=== PATIENT | female | born 1980 | race Caucasian/White ===

== ENCOUNTER 2017-07-21 01:44 | Inpatient (IN) | payer OTHER ==
[2017-07-21] MEDS ORDERED: BISACODYL 10 MG SUPP.RECT RC PRN (02:23)
[2017-07-21] MEDS ORDERED: BENZOCAINE 28 GM HEMORRHOIDAL OINTMENT TP PRN (02:23)
[2017-07-21] MEDS ORDERED: oxyCODONE HCL 5 MG TABLET PO PRN (02:23)
[2017-07-21] MEDS ORDERED: METHYLERGONOVINE MALEATE 0.2 MG/1 ML AMP IM PRN (02:23)
[2017-07-21] MEDS ORDERED: WITCH HAZEL 50% (TUCKS) 40 PAD/JAR PAD TP PRN (02:23)
[2017-07-21] MEDS ORDERED: BENZOCAINE 20% 57 GM BOTTLE TP PRN (02:23)
[2017-07-21] MEDS ORDERED: D5W-LR W/ 20 UNITS OXYTOCIN 1,000 ML IV SCH (02:30)
[2017-07-21 02:54] LABS: BASOPHIL 0.6 % (0-2.0); EOSINOPHIL 0.5 % (0-4.5); MCH 24.4 pg (25.7-33.7); MCHC 33.2 g/dl (32.0-36.0); MEAN CELL VOLUME 73.6 fl (80-96); MEAN PLT VOLUME 8.4 fl (7.5-11.1); PLATELET COUNT 250 K/MM3 (134-434); RDW 15.3 % (11.6-15.6); WHITE BLOOD COUNT 10.3 K/mm3 (4.0-10.0)
[2017-07-21 03:06] LABS: INR 1.07 (0.82-1.09); PROTHROMBIN TIME (PATIENT) 11.8 SEC (9.98-11.88)
[2017-07-21 03:09] LABS: ACTIVATED PTT 23.4 SECONDS (26.9-34.4)
[2017-07-21 03:11] LABS: ARTERIAL BLD GAS O2 SATURATION 71.3 % (90-98.9); ARTERIAL BLOOD GAS BASE EXCESS -4.8 meq/l (-2-2); ARTERIAL BLOOD GAS HCO3 20.1 meq/L (22-26); ARTERIAL BLOOD GAS pH 7.34 (7.35-7.45)
[2017-07-21 03:12] LABS: ARTERIAL BLOOD GAS PO2 34.9 mmHg (80-100)
[2017-07-21 03:14] LABS: VENOUS BLOOD GAS HCO3 22.6 meq/L (19-25); VENOUS PH 7.29 (7.32-7.42)
[2017-07-21 03:15] LABS: ANION GAP 13 (8-16); CALCIUM 8.1 mg/dL (8.5-10.1); CO2 19 mmol/L (21-32); CREATININE 0.6 mg/dL (0.55-1.02); GLUCOSE,RANDOM 110 mg/dL (74-106)
[2017-07-21] MEDS ORDERED: TUBERCULIN PPD 5 TU/0.1ML SYRINGE (IN PATIENT USE ONLY) ID ONE (03:30)
[2017-07-21 03:38] LABS: HIV 1 & 2 AB NEGATIVE; HIV 1 AGp24 NEGATIVE
[2017-07-21 03:47] VITALS: BMI 39.6
[2017-07-21] MEDS: ACETAMINOPHEN 325 MG TABLET (FP) PO PRN (06:18)
[2017-07-21] MEDS: IBUPROFEN 600 MG TABLET (FP) PO PRN (06:19)
--- NOTE | 2017-07-21 08:37 | HP ---
Past Medical History - Primary Care Physician PCP:: Campbell Guerrero - Admission Chief Complaint: labor pain, ROM History of Present Illness: 37 yo f 103 36 weeks gestation c/o rom since 2 pm yesterday, with contraction, no fever, no bleeding, cx full 100 vx ,1+fhr cat 1 contracction q 2 min History Source: Medical Record Limitations to Obtaining History: Language Barrier - Past Medical History ...: 4 ...Para: 3 ...Term: 3 ...: 0 ...Spon : 0 ...Induced : 0 ...Multiple Gestation: 0 ...LMP: 12/18/16 ... Weeks Gestation by Dates: 30.5 ...EDC by Dates: 09/24/17 - Past Surgical History Hx Myomectomy: No Hx Transabdominal Cerclage: No - Smoking History Smoking history: Never smoked Have you smoked in the past 12 months: No - Alcohol/Substance Use Hx Alcohol Use: No Home Medications - Allergies Allergies/Adverse Reactions: Allergies Allergy/AdvReac Type Severity Reaction Status Date / Time No Known Drug Allergies Allergy Verified 07/21/17 03:17 - Home Medications Home Medications: Ambulatory Orders Vit #76/Iron,Carb/FA [Pnv 29-1 Tablet] 1 tab PO DAILY 07/21/17 Review of Systems - Review of Systems Constitutional: reports: No Symptoms Eyes: reports: No Symptoms HENT: reports: No Symptoms Neck: reports: No Symptoms Cardiovascular: reports: No Symptoms Respiratory: reports: No Symptoms Gastrointestinal: reports: Abdominal Pain Genitourinary: reports: No Symptoms Breasts: reports: No Symptoms Reported Musculoskeletal: reports: No Symptoms Integumentary: reports: No Symptoms Neurological: reports: No Symptoms Endocrine: reports: No Symptoms Hematology/Lymphatic: reports: No Symptoms Psychiatric: reports: No Symptoms Physical Exam - Maternity Vital Signs: Vital Signs Temperature 98.9 F 07/21/17 06:00 Pulse Rate 60 07/21/17 06:00 Respiratory Rate 20 07/21/17 06:00 Blood Pressure 126/74 07/21/17 06:00 O2 Sat by Pulse Oximetry (%) 100 07/21/17 03:15 Constitutional: Yes: Well Nourished, No Distress, Calm Eyes: Yes: WNL, Conjunctiva Clear, EOM Intact HENT: Yes: WNL, Atraumatic, Normocephalic Neck: Yes: WNL, Supple, Trachea Midline Cardiovascular: Yes: WNL, Regular Rate and Rhythm Breast(s): Yes: WNL - Abdominal Exam/OB Fundal Height: 36 Number of Fetuses: Single Presentation: Vertex Contractions: Yes Regularity: Regular Intensity: Strong Monitor Mode: External Heart Rate Location: [facility] Category: I Accelerations: Uniform Decelerations: None - Vaginal Exam/OB Vaginal Bleediing: Bloody Show Speculum Exam: No Dilatation (cm): full Effacement (%): 100 Amniotic Membrane Status: Ruptured Nitrazine Test: Positive Amniotic Fluid: Yes: Clear Station: +1 - Physical Exam Musculoskeletal: Yes: WNL Extremities: Yes: WNL Edema: Yes Edema: LLE: Trace, RLE: Trace Deep Tendon Reflex Grade: Normal +2 Psychiatric: Yes: WNL - Labs Lab Results: CBC, BMP 07/21/17 02:00 07/21/17 02:00 Problem List - Problems (1) with 36 completed weeks gestation Code(s): Z3A.36 - 36 WEEKS GESTATION OF (2) membrane rupture Code(s): LKZ7444 - (3) Labor established Code(s): EHT5347 - Assessment/Plan admit for vaginal delivery, FH monitoring, ,ampicillin iv
[2017-07-21] MEDS: FERROUS SO4 325 MG TABLET (FP) PO SCH ×2 (10:44→21:32)
[2017-07-21] MEDS: PRENATAL VITAMINS W/ FOLIC ACID TABLET (FP) PO SCH (10:44)
[2017-07-22 07:31] LABS: BASOPHIL 0.4 % (0-2.0); EOSINOPHIL 1.4 % (0-4.5); MCH 24.1 pg (25.7-33.7); MCHC 32.1 g/dl (32.0-36.0); MEAN CELL VOLUME 74.9 fl (80-96); MEAN PLT VOLUME 7.9 fl (7.5-11.1); PLATELET COUNT 212 K/MM3 (134-434); RDW 15.8 % (11.6-15.6); WHITE BLOOD COUNT 7.6 K/mm3 (4.0-10.0)
[2017-07-22] MEDS: PRENATAL VITAMINS W/ FOLIC ACID TABLET (FP) PO SCH (09:50)
[2017-07-22] MEDS: FERROUS SO4 325 MG TABLET (FP) PO SCH ×2 (09:50→21:29)
[2017-07-22] MEDS ORDERED: DIPHTH,PERTUSS(ACELL),TET 0.5 ML DISP.SYRIN IM ONE (10:00)
[2017-07-22] MEDS ORDERED: FLU VACC QS2017-18 36MOS UP/PF 60 MCG/0.5 ML SYRINGE IM ONE (10:00)
--- NOTE | 2017-07-22 11:14 | PN ---
Progress Note (short form) - Note Progress Note: ppd 1 doing well, no c/o. no dizziness, no excess vaginal bleeding CBC, BMP 07/22/17 06:50 07/21/17 02:00 uterus firm, non tender, no cva no calf tenderness lochia mild ppd 1 anemia, asymptomatic, advised iron, vit Problem List - Problems (1) with 36 completed weeks gestation Code(s): Z3A.36 - 36 WEEKS GESTATION OF (2) membrane rupture Code(s): USX5844 - (3) Labor established Code(s): EJX7755 -
[2017-07-22] MEDS ORDERED: SENNOSIDES/DOCUSATE COMBO (SENNA PLUS) TABLET (UD) PO PRN (22:00)
--- NOTE | 2017-07-23 06:32 | PN ---
Post Progress Note - Subjective Subjective: no complains except cramps Post Day: 2 Type of Delivery: Vital Signs: Vital Signs Temperature 98.3 F 07/22/17 22:00 Pulse Rate 66 07/22/17 22:00 Respiratory Rate 20 07/22/17 22:00 Blood Pressure 124/71 07/22/17 22:00 O2 Sat by Pulse Oximetry (%) 100 07/21/17 03:15 Breast Exam: Yes: Soft, Other (attempting BF , no milk yet ). No: Engorged Uterus: Yes: Fundus Firm, Fundus below umbilicus, Non-tender Lochia: Yes: Rubra Lochia, amount: Moderate Extremities: Yes: Calves non-tender Perineum: Yes: Intact Activity: Ambulating - Labs Labs: CBC WBC 7.6 K/mm3 (4.0-10.0) 07/22/17 06:50 RBC 3.58 M/mm3 (3.60-5.2) L 07/22/17 06:50 Hgb 8.6 GM/dL (10.7-15.3) L D 07/22/17 06:50 Hct 26.8 % (32.4-45.2) L 07/22/17 06:50 MCV 74.9 fl (80-96) L 07/22/17 06:50 MCH 24.1 pg (25.7-33.7) L 07/22/17 06:50 MCHC 32.1 g/dl (32.0-36.0) 07/22/17 06:50 RDW 15.8 % (11.6-15.6) H 07/22/17 06:50 Plt Count 212 K/MM3 (134-434) 07/22/17 06:50 MPV 7.9 fl (7.5-11.1) 07/22/17 06:50 Neutrophils % 51.0 % (42.8-82.8) D 07/22/17 06:50 Lymphocytes % 38.7 % (8-40) D 07/22/17 06:50 Monocytes % 8.5 % (3.8-10.2) 07/22/17 06:50 Eosinophils % 1.4 % (0-4.5) D 07/22/17 06:50 Basophils % 0.4 % (0-2.0) 07/22/17 06:50 Assessment/Plan anemia counselled discharge today follow in her clinic discharge today
[2017-07-23] MEDS: IBUPROFEN 600 MG TABLET (FP) PO PRN (07:43)
[2017-07-23] MEDS: ACETAMINOPHEN 325 MG TABLET (FP) PO PRN (07:43)
[2017-07-23 08:32] VITALS: BP 124/74; PULSE 65
[2017-07-23] MEDS: PRENATAL VITAMINS W/ FOLIC ACID TABLET (FP) PO SCH (10:27)
[2017-07-23] MEDS: FERROUS SO4 325 MG TABLET (FP) PO SCH (10:27)
[2017-07-23 12:13] VITALS: TEMP 99.3
--- NOTE | 2017-07-25 08:40 | DS ---
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: Vital Signs Temperature 99.3 F 07/23/17 12:13 Pulse Rate 65 07/23/17 08:19 Respiratory Rate 20 07/23/17 08:19 Blood Pressure 124/74 07/23/17 08:19 O2 Sat by Pulse Oximetry (%) 100 07/21/17 03:15 Constitutional: Yes: Well Nourished, No Distress, Calm Eyes: Yes: WNL, Conjunctiva Clear, EOM Intact HENT: Yes: WNL, Atraumatic, Normocephalic Neck: Yes: WNL, Supple, Trachea Midline Cardiovascular: Yes: WNL, Regular Rate and Rhythm Respiratory: Yes: WNL, Regular, CTA Bilaterally Gastrointestinal: Yes: WNL ...Rectal Exam: Yes: WNL Renal/: Yes: WNL ....Post : Yes: Uterus firm, Uterus non-tender, Slight lochia rubra Breast(s): Yes: WNL Musculoskeletal: Yes: WNL Extremities: Yes: WNL Edema: No Integumentary: Yes: WNL Neurological: Yes: WNL, Alert, Oriented ...Motor Strength: WNL Psychiatric: Yes: WNL, Alert, Oriented Labs: CBC, BMP 07/22/17 06:50 07/21/17 02:00 Delivery - Delivery Section: Primary (no complication) Type of Anesthesia: None Episiotomy/Laceration: None EBL (cc): 300 Delivery, Single - Stages of Labor Date 1st Stage Initiatied: 07/20/17 Time 1st Stage Initiated: 23:00 Date of Delivery: 07/21/17 Time of Delivery: 02:10 Time Placenta Delivered: 02:15 Placenta: Yes: Spontaneous - Condition of Infant Sight Effects Specialist/Manager Community Development Present: Yes Name: Quyen Martínez Infant Gender: Female Weight: 7 lb 5 oz Position: Left, OA Total Hours ROM (Hrs/Mins): 12 HOURS 10MINUTES - 1 Minute Total Score: 9 5 Minutes Total Score: 9 - Feeding Plan Initial Plan: Elected not to breastfeed exclusively throughout hospitalization Discharge Summary Reason For Visit: LABOR Procedures: Principal: Condition: Good - Instructions Diet, Activity, Other Instructions: Discharge Instructions * Out of Bed * * Regular Diet, High iron & high protein Diet * Continue vit po daily & Iron pills twice daily * Janay Care * Avoid sex for 6 weeks * RTC for pp visit in 6 weeks If you experience excessive bleeding or fever over 101 degrees, call doctor, the clinic or go to the Emergency Room. call [facility] for appointment. [phone] Disposition: HOME - Home Medications Comprehensive Discharge Medication List: Ambulatory Orders Vit #76/Iron,Carb/FA [Pnv 29-1 Tablet] 1 tab PO DAILY 07/21/17 Acetaminophen [Tylenol .Regular Strength -] 650 mg PO Q3H PRN #0 tablet Ferrous Sulfate [Feosol] 325 mg PO BID #60 tab 07/23/17 Ibuprofen [Motrin -] 200 mg PO Q4H PRN #0 tablet 07/23/17 Vitamins ([facility]) - 1 tab PO DAILY #30 tablet 07/23/17
== END 2017-07-23 14:15 | disposition home or self-care (01) | DRG 560 ==
LOC: JDEL 01:44 → JLDR 01:45 → J3W 06:12
PROVIDERS: ADMIT Obstetrics & Gynecology; ATTEND Obstetrics & Gynecology
PROC: 10E0XZZ Delivery of Products of Conception, External Approach (ICD-10-PCS; principal; 2017-07-21)
DX: O99.02 Anemia complicating childbirth (principal); Z3A.36 36 weeks gestation of pregnancy; Z37.0 Single live birth
CPT/HCPCS: 36415; 36600; 59409; 80048; 82803; 85025; 85610; 85730; 86593; 86762; 86850; 86900; 86901; 87340; 87389; 90686; 90715; G0008